=== PATIENT | female | born 1945 | race Caucasian/White ===

== ENCOUNTER 2022-03-23 08:54 | Inpatient (IN) | payer MEDICARE, MEDICAID ==
[~2022-03-23 08:54] MED LIST: Iopamidol 370 76% 100 ML VIAL ONE
[2022-03-23 09:28] LABS: Hemoglobin 10.4 g/dL (12.0-15.5); Mean Corpuscular HGB CONC 32.9 g/dL (32.0-36.0); Mean Corpuscular Hemoglobin 29.5 pg (27.0-33.0); Mean Corpuscular Volume 89.8 fl (81.6-98.3); Mean Platelet Volume 9.6 fl (7.4-10.4); Platelet Count 322 10x3/uL (150-450); RBC Distribution Width 15.4 % (11.5-14.5); Red Blood Cell (RBC) Count 3.52 10x6/uL (3.90-5.03)
[2022-03-23 09:31] LABS: MDiff Complete? YES
[2022-03-23 09:39] LABS: ALT (SGPT) 15 U/L (8-55); AST (SGOT) 22 U/L (5-34); Albumin 3.6 g/dL (3.4-4.8); Alkaline Phosphatase 49 U/L (40-110); Anion Gap 18 mmol/L (10-20); BUN (Urea Nitrogen) 11 mg/dL (9.8-20.1); Bilirubin, Total 0.9 mg/dL (0.2-1.2); Calc. Creatinine Clearance 0 mL/min (70-130); Calcium 8.5 mg/dL (7.8-10.44); Carbon Dioxide 23 mmol/L (23-31); Chloride 89 mmol/L (98-107); Estimated GFR 92; Globulin 3.3 g/dL (2.4-3.5); Glucose 167 mg/dL (83-110); Potassium 3.9 mmol/L (3.5-5.1); Protein, Total 6.9 g/dL (5.8-8.1); Sodium 126 mmol/L (136-145)
[2022-03-23 09:48] LABS: Band 5 % (5-11); Lymphocytes 28 % (21-51); Monocytes 7 % (0-10); Neutrophil 60 % (42-75)
[2022-03-23 09:49] LABS: Platelet Morphology Comment Appears Adequate
[2022-03-23] MEDS ORDERED: cefTRIAXone\\ROCEPHIN 2 GM VIAL ONE (10:03)
[2022-03-23] MEDS ORDERED: Azithromycin 500 MG VIAL ONE ×2 (10:03→10:10)
[2022-03-23] MEDS ORDERED: Dexamethasone 10 MG/ML VIAL ONE (10:03)
[2022-03-23 10:04] LABS: SARS-CoV-2 NAA Rapid Test Not Detected (NotDetected)
[2022-03-23] MEDS ORDERED: Senokot S 8.6-50 MG TAB PO PRN (10:52)
[2022-03-23] MEDS ORDERED: Acetaminophen 325 MG TAB PO PRN (10:52)
[2022-03-23] MEDS ORDERED: HYDROcodone/Acetaminophen 5/325 mg Tablet PO PRN (10:52)
[2022-03-23] MEDS ORDERED: Furosemide 40 MG/4 ML VIAL SLOW IVP STA (10:52)
[2022-03-23] MEDS ORDERED: Dextrose 5% in Water 1,000 ML IV PRN (10:56)
[2022-03-23] MEDS ORDERED: Dextrose 50% Abboject 50 ML SYRINGE SLOW IVP PRN (10:56)
[2022-03-23 11:07] LABS: Clarity Clear (Clear); Specific Gravity, Urine 1.015 (1.002-1.036)
[2022-03-23 11:08] LABS: Bilirubin Neg (Negative); Blood, Urine Negative (Negative); Glucose, Urine (Dipstick) Normal (Negative); Ketone, Urine 5 mg/dL (Negative); Leukocyte Negative (Negative); Nitrite Negative (Negative); Protein, Urine (Dipstick) 100 mg/dl (Neg-Trace); Urobilinogen Normal mg/dL (Less than 2)
[2022-03-23 11:13] LABS: Bacteria/HPF Rare-Few HPF (None Seen); Mucous/LPF 1+ LPF (<2+); RBC/HPF 0-3 HPF (0-3); Squamous Epithelial 0-3 HPF (0-3); WBC/HPF 0-3 HPF (0-3)
[2022-03-23] MEDS ORDERED: Furosemide 40 MG/4 ML VIAL SLOW IVP SCH (13:00)
[2022-03-23 13:35] VITALS: BMI 32.4
[2022-03-23] MEDS ORDERED: Vancomycin 1.5 GRAM/300 ML BAG 1.5 GM in Premix Bag 1 BAG IVPB SCH (14:30)
[2022-03-23 15:53] LABS: Anion Gap 20 mmol/L (10-20); BUN (Urea Nitrogen) 12 mg/dL (9.8-20.1); Calc. Creatinine Clearance 89 mL/min (70-130); Calcium 8.3 mg/dL (7.8-10.44); Carbon Dioxide 20 mmol/L (23-31); Chloride 91 mmol/L (98-107); Estimated GFR 86; Glucose 259 mg/dL (83-110); Potassium 3.9 mmol/L (3.5-5.1); Sodium 127 mmol/L (136-145)
[2022-03-23] MEDS: Cefepime 1 GM in Sodium Chloride 0.9% 100 ML IVPB SCH (20:26)
[2022-03-23] MEDS: Famotidine/PF 20 mg/2ml Vial SLOW IVP SCH (20:32)
[2022-03-23] MEDS: HumaLOG 300 UNITS/3 ML VIAL SC PRN (20:40)
[2022-03-24 04:00] LABS: #Monocytes 1.3 10x3/uL (0.0-1.1); #Neutrophils 6.3 10x3/uL (1.5-8.4); %Basophils 0.2 % (0.0-2.0); %Lymphocytes 14.4 % (18.0-47.0); %Monocytes 14.1 % (0.0-10.0); %Neutrophils 70.5 % (40.0-75.0); Hemoglobin 8.7 g/dL (12.0-15.5); Mean Corpuscular HGB CONC 33.9 g/dL (32.0-36.0); Mean Corpuscular Hemoglobin 29.8 pg (27.0-33.0); Mean Platelet Volume 9.6 fl (7.4-10.4); Platelet Count 290 10x3/uL (150-450); RBC Distribution Width 15.2 % (11.5-14.5); Red Blood Cell (RBC) Count 2.92 10x6/uL (3.90-5.03); White Blood Cell (WBC) Count 8.9 10x3/uL (3.5-10.5)
[2022-03-24 04:16] LABS: Anion Gap 17 mmol/L (10-20); BUN (Urea Nitrogen) 16 mg/dL (9.8-20.1); Calc. Creatinine Clearance 88 mL/min (70-130); Carbon Dioxide 22 mmol/L (23-31); Chloride 93 mmol/L (98-107); Estimated GFR 85; Glucose 213 mg/dL (83-110); Potassium 3.3 mmol/L (3.5-5.1); Sodium 129 mmol/L (136-145)
[2022-03-24] MEDS: HumaLOG 300 UNITS/3 ML VIAL SC PRN ×4 (07:33→21:46)
[2022-03-24] MEDS ORDERED: Vancomycin HCl 1 GM in Sodium Chloride 0.9% 250 ML 250 ML IVPB SCH (08:00)
[2022-03-24] MEDS: Enoxaparin Sodium 40 MG/0.4 ML SYRINGE SC SCH (09:41)
[2022-03-24] MEDS: Famotidine/PF 20 mg/2ml Vial SLOW IVP SCH ×2 (09:42→21:34)
[2022-03-24] MEDS: Cefepime 1 GM in Sodium Chloride 0.9% 100 ML IVPB SCH (12:10)
[2022-03-24 14:39] LABS: Hemoglobin 8.7 g/dL (12.0-15.5); Platelet Count 309 10x3/uL (150-450)
[2022-03-24] MEDS: metFORMIN 500 MG TAB PO SCH (16:03)
[2022-03-24] MEDS ORDERED: cefTRIAXone\\ROCEPHIN 2 GM in Sodium Chloride 0.9% 100 ML IVPB SCH (16:30)
[2022-03-24] MEDS ORDERED: Azithromycin 500 MG in Sodium Chloride 0.9% 250 ML 250 ML IVPB SCH (17:00)
[2022-03-24] MEDS: Mometasone/Formoterol 200/5 60 PUFF INH SCH (19:00)
[2022-03-24 20:52] LABS: Strep pneumo Urine Ag NEGATIVE (NEGATIVE)
[2022-03-24] MEDS: Lantus 1000 UNITS/10 ML VIAL SC SCH (21:43)
[2022-03-25] MEDS ORDERED: Nebivolol HCl 5 MG TAB PO SCH (06:15)
[2022-03-25] MEDS: Mometasone/Formoterol 200/5 60 PUFF INH SCH (07:40)
[2022-03-25 07:48] LABS: #Basophils 0.1 10x3/uL (0.0-0.2); #Eosinphils 0.2 10x3/uL (0.0-0.5); #Monocytes 1.4 10x3/uL (0.0-1.1); #Neutrophils 9.5 10x3/uL (1.5-8.4); %Basophils 0.5 % (0.0-2.0); %Eosinophils 1.2 % (0.0-6.0); %Lymphocytes 13.6 % (18.0-47.0); %Monocytes 10.6 % (0.0-10.0); %Neutrophils 73.2 % (40.0-75.0); Hemoglobin 9.5 g/dL (12.0-15.5); Mean Corpuscular HGB CONC 33.6 g/dL (32.0-36.0); Mean Corpuscular Hemoglobin 29.4 pg (27.0-33.0); Mean Corpuscular Volume 87.6 fl (81.6-98.3); Mean Platelet Volume 9.3 fl (7.4-10.4); Platelet Count 325 10x3/uL (150-450); RBC Distribution Width 15.6 % (11.5-14.5); Red Blood Cell (RBC) Count 3.23 10x6/uL (3.90-5.03)
[2022-03-25 08:03] LABS: ALT (SGPT) 20 U/L (8-55); AST (SGOT) 35 U/L (5-34); Albumin 3.5 g/dL (3.4-4.8); Alkaline Phosphatase 44 U/L (40-110); Anion Gap 17 mmol/L (10-20); BUN (Urea Nitrogen) 10 mg/dL (9.8-20.1); Bilirubin, Total 0.4 mg/dL (0.2-1.2); Calc. Creatinine Clearance 97 mL/min (70-130); Calcium 8.6 mg/dL (7.8-10.44); Carbon Dioxide 22 mmol/L (23-31); Chloride 101 mmol/L (98-107); Estimated GFR 92; Globulin 3.2 g/dL (2.4-3.5); Glucose 134 mg/dL (83-110); Potassium 3.4 mmol/L (3.5-5.1); Protein, Total 6.7 g/dL (5.8-8.1); Sodium 137 mmol/L (136-145)
[2022-03-25] MEDS ORDERED: Alogliptin 25 MG TAB PO SCH (09:00)
[2022-03-25] MEDS ORDERED: DULoxetine 30 MG CAP PO SCH (09:00)
[2022-03-25] MEDS ORDERED: Rosuvastatin 10 MG TAB PO SCH (09:00)
[2022-03-25] MEDS ORDERED: LIRAGLUTIDE 0.6 MG/0.1 ML SC SCH (09:00)
[2022-03-25] MEDS ORDERED: Pregabalin 75 MG CAP PO SCH (09:00)
[2022-03-25] MEDS ORDERED: Losartan Potassium 50 MG TAB PO SCH ×2 (09:00)
[2022-03-25] MEDS ORDERED: Aspirin 81 mg Enteric Coated Tablet PO SCH (09:00)
[2022-03-25] MEDS: metFORMIN 500 MG TAB PO SCH (09:55)
[2022-03-25] MEDS: Lantus 1000 UNITS/10 ML VIAL SC SCH (09:57)
[2022-03-25] MEDS: Famotidine/PF 20 mg/2ml Vial SLOW IVP SCH (09:58)
[2022-03-25] MEDS: Enoxaparin Sodium 40 MG/0.4 ML SYRINGE SC SCH (10:05)
[2022-03-25] MEDS ORDERED: Amlodipine 5 MG TAB PO SCH (10:45)
[2022-03-25 13:44] VITALS: BP 160/70; TEMP 97.5
[2022-03-26] MEDS ORDERED: Nebivolol HCl 5 MG TAB PO SCH (09:00)
[2022-03-26] MEDS ORDERED: Amlodipine 5 MG TAB PO SCH (09:00)
== END 2022-03-25 12:10 | disposition home health service (06) | DRG 871 ==
LOC: CSHERS 08:54 → CSHTELE 11:51
PROVIDERS: ADMIT Family Medicine; ATTEND Family Medicine
DX: A41.9 Sepsis, unspecified organism (principal); J18.9 Pneumonia, unspecified organism; J96.01 Acute respiratory failure with hypoxia; J44.1 Chronic obstructive pulmonary disease with (acute) exacerbation; J44.0 Chronic obstructive pulmonary disease with (acute) lower respiratory infection; E87.1 Hypo-osmolality and hyponatremia; I13.0 Hypertensive heart and chronic kidney disease with heart failure and stage 1 through stage 4 chronic kidney disease, or unspecified chronic kidney disease; R65.20 Severe sepsis without septic shock; I25.10 Atherosclerotic heart disease of native coronary artery without angina pectoris; Z20.822 Contact with and (suspected) exposure to COVID-19; I50.9 Heart failure, unspecified; E78.5 Hyperlipidemia, unspecified; F32.A Depression, unspecified; N18.1 Chronic kidney disease, stage 1; D63.1 Anemia in chronic kidney disease; I35.0 Nonrheumatic aortic (valve) stenosis; R91.1 Solitary pulmonary nodule; E11.22 Type 2 diabetes mellitus with diabetic chronic kidney disease; Z88.7 Allergy status to serum and vaccine; Z79.51 Long term (current) use of inhaled steroids; Z79.82 Long term (current) use of aspirin; Z79.899 Other long term (current) drug therapy; Z95.1 Presence of aortocoronary bypass graft; Z87.891 Personal history of nicotine dependence; Z79.84 Long term (current) use of oral hypoglycemic drugs; Z79.4 Long term (current) use of insulin
CPT/HCPCS: 36415; 36416; 71045; 71275; 80048; 80053; 81003; 81015; 83605; 83880; 83930; 83935; 84145; 84443; 84484; 85025; 87040; 87070; 87086; 87205; 87449; 93005; 93306; 94640; 94664; 94760; 96365; 96366; 96368; 96375; J0456; J0692; J0696; J1100; J1650; J1815; J1940; J3370; J3490; J7050; J7620; Q9967; S0028